=== PATIENT | male | born 1970 | race Native Hawaiian/Other Pacific Islander ===

== ENCOUNTER 2021-02-24 21:16 | Inpatient (IN) | payer OTHER ==
[~2021-02-24] VITALS: Ht 180.3 cm; Wt 100.5 kg
[2021-02-24 21:16] VITALS: BP 137/74; TEMP 102
[~2021-02-24 21:16] MED LIST: ALPR0.5T24 PO; METO50TA27 PO
[2021-02-24] MEDS ORDERED: XANAX XR1 MG PO (21:47)
[2021-02-24 22:00] VITALS: BP 132/78; TEMP 101.2
[2021-02-24 22:13] LABS: PLATELET COUNT 145 K/uL (142-355)
[2021-02-24 22:25] LABS: POTASSIUM 3.8 mmol/L (3.6-5.2)
[2021-02-24 22:30] VITALS: BP 130/76; TEMP 100.2
[2021-02-24 23:00] VITALS: BP 126/83
[2021-02-25] VITALS (14 sets, daily range): BP systolic 112–1334; BP diastolic 64–92; TEMP 97.9–98.9; Ht 180.3 cm; Wt 100.5 kg
[2021-02-25] MEDS ORDERED: ALPR0.5T24 PO (04:42)
[2021-02-25] MEDS ORDERED: BENZONATATE200 MG PO (04:44)
[2021-02-25] MEDS ORDERED: ZINC50 M1 PO (04:47)
[2021-02-25] MEDS ORDERED: D32000 UNIT PO (04:48)
[2021-02-25] MEDS ORDERED: [UNRECOGNIZED DRUG - OTHER] PO (04:49)
[2021-02-25] MEDS ORDERED: [UNRECOGNIZED DRUG - MIXTURE] PO (04:52)
[2021-02-25 18:55] LABS: PLATELET COUNT 187 K/uL (142-355)
[2021-02-26] VITALS (21 sets, daily range): BP systolic 116–154; BP diastolic 50–88; TEMP 98.6–99.6
[2021-02-26 05:20] LABS: PLATELET COUNT 200 K/uL (142-355)
[2021-02-26 05:35] LABS: POTASSIUM 4.4 mmol/L (3.6-5.2)
[2021-02-27] VITALS (25 sets, daily range): BP systolic 108–154; BP diastolic 65–95; TEMP 97.8–98.7
[2021-02-27 06:25] LABS: PLATELET COUNT 244 K/uL (142-355)
[2021-02-27 06:41] LABS: POTASSIUM 4.4 mmol/L (3.6-5.2)
[2021-02-28] VITALS (24 sets, daily range): BP systolic 105–148; BP diastolic 70–97; TEMP 97.6–99.2
[2021-02-28 04:59] LABS: PLATELET COUNT 282 K/uL (142-355)
[2021-02-28 05:18] LABS: POTASSIUM 4.7 mmol/L (3.6-5.2)
[2021-03-01] VITALS (36 sets, daily range): BP systolic 96–144; BP diastolic 60–83; TEMP 97.7–99.2
[2021-03-01 05:40] LABS: PLATELET COUNT 221 K/uL (142-355)
[2021-03-01 06:34] LABS: POTASSIUM 6.1 mmol/L (3.6-5.2)
[2021-03-01 15:22] LABS: PLATELET COUNT 209 K/uL (142-355)
[2021-03-01 17:38] LABS: POTASSIUM 5.3 mmol/L (3.6-5.2)
[2021-03-02] VITALS (24 sets, daily range): BP systolic 101–156; BP diastolic 63–97; TEMP 97.3–99.1
[2021-03-02 06:11] LABS: PLATELET COUNT 174 K/uL (142-355)
[2021-03-02 06:49] LABS: POTASSIUM 4.8 mmol/L (3.6-5.2)
[2021-03-03] VITALS (17 sets, daily range): BP systolic 124–157; BP diastolic 69–95; TEMP 99.2–99.6
[2021-03-03 06:30] LABS: PLATELET COUNT 177 K/uL (142-355)
[2021-03-04] VITALS (24 sets, daily range): BP systolic 14–153; BP diastolic 9–87; TEMP 99.9–101.3
[2021-03-04 05:10] LABS: PLATELET COUNT 125 K/uL (142-355)
[2021-03-04 05:26] LABS: POTASSIUM 5.9 mmol/L (3.6-5.2)
[2021-03-05] VITALS (18 sets, daily range): BP systolic 126–174; BP diastolic 68–97; TEMP 96.3–101.9
[2021-03-05 05:38] LABS: PLATELET COUNT 176 K/uL (142-355)
[2021-03-05 06:05] LABS: POTASSIUM 6.3 mmol/L (3.6-5.2)
[2021-03-05 15:08] LABS: POTASSIUM 5.3 mmol/L (3.6-5.2)
[2021-03-06] VITALS (14 sets, daily range): BP systolic 120–179; BP diastolic 63–96; TEMP 97.9
[2021-03-06 05:04] LABS: POTASSIUM 4.8 mmol/L (3.6-5.2)
[2021-03-06 05:42] LABS: PLATELET COUNT 155 K/uL (142-355)
[2021-03-07 05:38] LABS: PLATELET COUNT 78 K/uL (142-355)
[2021-03-08] VITALS (13 sets, daily range): BP systolic 112–141; BP diastolic 65–89; TEMP 97.4–99
[2021-03-08 05:41] LABS: PLATELET COUNT 86 K/uL (142-355)
[2021-03-08 05:54] LABS: POTASSIUM 4.9 mmol/L (3.6-5.2)
[2021-03-09] VITALS (19 sets, daily range): BP systolic 99–201; BP diastolic 56–99; TEMP 99.5–100.1
[2021-03-09 03:25] LABS: PLATELET COUNT 121 K/uL (142-355)
[2021-03-09 09:35] LABS: POTASSIUM 5.6 mmol/L (3.6-5.2)
[2021-03-10] VITALS (15 sets, daily range): BP systolic 107–168; BP diastolic 71–101; TEMP 98.6–99.7
[2021-03-10 01:39] LABS: PLATELET COUNT 174 K/uL (142-355)
[2021-03-10 04:42] LABS: PLATELET COUNT 136 K/uL (142-355)
[2021-03-10 04:56] LABS: POTASSIUM 5.4 mmol/L (3.6-5.2)
[2021-03-11 00:01] VITALS: BP 160/83; TEMP 98.6
[2021-03-11 01:00] VITALS: BP 155/90
[2021-03-11 02:00] VITALS: BP 155/85
[2021-03-11 03:00] VITALS: BP 163/106
[2021-03-11 04:00] VITALS: BP 141/87; TEMP 98.4
[2021-03-11 04:24] LABS: POTASSIUM 5.3 mmol/L (3.6-5.2)
[2021-03-11 04:29] LABS: PLATELET COUNT 174 K/uL (142-355)
[2021-03-11 05:00] VITALS: BP 139/74
== END 2021-03-11 09:24 | disposition expired | DRG 207 ==
LOC: ED 21:16 → MED/SURG 23:36 → ICU 02-25 11:35 → PCU 02-26 11:30 → ICU 03-04 13:30
PROVIDERS: Family Medicine; ADMIT Internal Medicine; ATTEND Internal Medicine
PROC: 5A1955Z Respiratory Ventilation, Greater than 96 Consecutive Hours (ICD-10-PCS; 2021-03-01)
PROC: 0BH17EZ Insertion of Endotracheal Airway into Trachea, Via Natural or Artificial Opening (ICD-10-PCS; 2021-03-01)
PROC: 05HM33Z Insertion of Infusion Device into Right Internal Jugular Vein, Percutaneous Approach (ICD-10-PCS; principal; 2021-03-03)
PROC: B543ZZA Ultrasonography of Right Jugular Veins, Guidance (ICD-10-PCS; 2021-03-03)
DX: U07.1 COVID-19 (principal); J12.82 Pneumonia due to coronavirus disease 2019; E87.0 Hyperosmolality and hypernatremia; I46.9 Cardiac arrest, cause unspecified; I45.6 Pre-excitation syndrome; N28.9 Disorder of kidney and ureter, unspecified; D72.828 Other elevated white blood cell count; I87.8 Other specified disorders of veins; E87.5 Hyperkalemia
CPT/HCPCS: 36415; 36591; 36600; 80048; 80053; 80202; 82550; 82553; 82805; 82947; 83605; 84132; 84295; 84484; 85007; 85027; 86900; 86901; 87040; 87070; 87077; 87185; 87186; 87205; 87635; 93005; 94002; 94003; 94640; 94660; 94664; 94760; 96374; 96375; 96376; 99284; C1751; C1768; J0132; J0330; J0360; J0456; J0610; J1100; J1630; J1650; J1815; J1940; J2060; J2250; J2270; J2543; J2704; J2930; J3370; J3490; P9017; P9047; U0003